=== PATIENT | female | born 1940 | race Caucasian/White ===

== ENCOUNTER 2017-02-03 11:23 | Outpatient (CLI) | payer MEDICARE, OTHER ==
--- NOTE | 2017-02-03 13:47 | MMO ---
BILATERAL DIGITAL SCREENING MAMMOGRAMS: Date: 02/03/17 HISTORY: 76-year-old female presents for digital screening mammogram. COMPARISON: 01/04/16, 08/18/12, 07/29/11. FINDINGS: This patient's mammogram was interpreted with the assistance of computer-aided detection. The breasts are heterogeneously dense, which can obscure small masses. Stable typically benign calcifications. No direct or indirect evidence of malignancy. IMPRESSION: BIRADS 2: Benign Finding(s) Continue routine screening. POS: [facility]
== END 2017-02-03 11:24 | disposition home or self-care (01) ==
LOC: SCSMAMMO 11:23
PROVIDERS: ATTEND Family Medicine
DX: Z12.31 Encounter for screening mammogram for malignant neoplasm of breast (principal)
CPT/HCPCS: 77067; G0202

== ENCOUNTER 2018-02-15 13:26 | Outpatient (CLI) | payer MEDICARE, OTHER ==
--- NOTE | 2018-02-15 16:26 | MMO ---
BILATERAL SCREENING MAMMOGRAM: Date: 02/15/18 COMPARISON: 02/03/17, 01/04/16, 08/18/12. HISTORY: Annual screening exam. This patient's mammogram was interpreted with the assistance of computer-aided detection. FINDINGS: The breasts are heterogeneously dense. There are vascular calcifications in both breasts. There is no dominant mass, suspicious calcification, or other sign of malignancy. IMPRESSION: BIRADS 2: Benign Finding(s) POS: [facility]
== END 2018-02-15 13:27 | disposition home or self-care (01) ==
LOC: SCSMAMMO 13:26
PROVIDERS: ATTEND Family Medicine
DX: Z12.31 Encounter for screening mammogram for malignant neoplasm of breast (principal)
CPT/HCPCS: 77067